=== PATIENT | female | born 1980 | race American Indian/Alaskan Native ===

== ENCOUNTER 2017-08-28 00:04 | Emergency (ER) | payer SELFPAY ==
[2017-08-28] MEDS ORDERED: ZOFRAN IV ONE ×2 (01:20→02:12)
[2017-08-28] MEDS ORDERED: DILAUDID IV ONE ×2 (01:20→02:14)
--- NOTE | 2017-08-28 01:25 | Emergency Department Report ---
ED Upper Extremity Inj HPI - General Chief Complaint: Extremity Problem,Nontraumatic Stated Complaint: LT ARM PAIN Time Seen by Provider: 08/28/17 01:02 Source: patient Mode of arrival: Ambulatory Limitations: No Limitations - History of Present Illness Initial Comments: 37-year-old female with no significant past medical history presents to the hospital left arm pain. Patient is right-hand dominant. Patient states she was upset at the time about a family situation involving her parents. She was in a hurry and her was assisting with putting on her jacket. Patient placed her left arm in the jacket and went to spin around and put the right arm in the jacket when she felt sudden onset of sharp pain to her left upper arm rated 10/10 in intensity. She felt like her arm with hanging out of place. Pain is constant and worse with palpation and movement. No other injury reported. Patient denies domestic abuse, assault, or other trauma (when questioned without her present). - Related Data Previous Rx's Medication Instructions Recorded Last Taken Type Ibuprofen [Motrin] 800 mg PO Q8HR PRN #30 tablet 08/28/17 Unknown Rx Oxycodone HCl/Acetaminophen 1 each PO Q4HR PRN #20 tablet 08/28/17 Unknown Rx [Percocet 7.5/325 mg] Allergies Allergy/AdvReac Type Severity Reaction Status Date / Time No Known Allergies Allergy Unverified 08/28/17 00:27 ED Review of Systems ROS: Stated complaint: LT ARM PAIN Other details as noted in HPI Comment: All other systems reviewed and negative Other: Constitutional: No fevers chills Eyes: No eye pain visual changes ENT: No ear pain or throat pain Neck: Denies pain Respiratory: Denies cough wheezing shortness of breath Cardiovascular: Denies chest pain, palpitations, syncope GI: Denies abdominal pain, nausea, vomiting, diarrhea : Denies dysuria Musculoskeletal: as per hpi Skin: Denies rash, lesions, erythema Neurologic: Denies headache, numbness, weakness Psychiatric: Denies suicidal ideation, hallucinations ED Past Medical Hx - Past Medical History Previous Medical History?: No - Surgical History Past Surgical History?: No - Social History Smoking Status: Never Smoker Substance Use Type: None - Medications Home Medications: Home Medications Medication Instructions Recorded Confirmed Last Taken Type Ibuprofen [Motrin] 800 mg PO Q8HR PRN #30 tablet 08/28/17 Unknown Rx Oxycodone HCl/Acetaminophen 1 each PO Q4HR PRN #20 tablet 08/28/17 Unknown Rx [Percocet 7.5/325 mg] ED Physical Exam - General Limitations: No Limitations - Other Other exam information: General: No limitations, moderate discomfort secondary to pain Head exam: Atraumatic, normocephalic Eyes exam: Normal appearance ENT: Moist mucous membrane, normal oropharynx Neck exam: Normal inspection, full range of motion, no meningismus nontender Respiratory exam: Clear to auscultation bilateral, no wheezes, rales, crackles Cardiovascular: Normal rate and rhythm, normal heart sounds Abdomen: Soft, nondistended, and nontender, with normal bowel sounds, no rebound, or guarding Extremity: Full range of motion. Deformity to left upper arm with pain to palpation. 2+ radial pulse to the left wrist with full range of motion of fingers. No signs of bradycardia and no positive this time. Patient has good strength with wrist dorsiflexion, and good thumb strength in all directions including okay sign. Back: Normal Inspection, full range of motion, no tenderness Neurologic: Alert, oriented x3, cranial nerves intact, no motor or sensory deficit Psychiatric: normal affect, normal mood Skin: Warm, dry, intact ED Course Vital Signs 08/28/17 08/28/17 00:08 01:40 Temperature 98.7 F 98.1 F Pulse Rate 78 68 Respiratory 18 18 Rate Blood Pressure 130/91 Blood Pressure 138/72 [Left] O2 Sat by Pulse 99 100 Oximetry - Reevaluation(s) Reevaluation #1: 08/28/17 03:46 Patient received Dilaudid 1 mg 2 and Zofran 4 mg 2 prior to splint placement - Consultations Consultation #1: 08/28/17 01:27 Case discussed with on-call orthopedic surgeon Dr. Mccall. He reviewed images. Recommend coarctation splint and outpatient follow-up on Friday. ED Medical Decision Making - Radiology Data Radiology results: report reviewed read by radiologist Left Shoulder x-ray: Nondisplaced cortical fracture of the proximal left humerus diaphysis Left humerus x-ray: Fractures of the proximal humerus, angulated and a nondisplaced cortical fracture of the humeral neck - Medical Decision Making Patient had a coarctation splint placed by tech in the ED. Splint inspected by me in deemed effective in addition to sling. Patient has 2+ radial pulses, normal distal sensation and normal strength to fingers and wrists after splint placement. Patient will be discharged home on pain medication and encouraged to follow up with orthopedic surgeon on the - Differential Diagnosis fracture, contusion, sprain, dislocation Critical Care Time: No Critical care attestation.: If time is entered above; I have spent that time in minutes in the direct care of this critically ill patient, excluding procedure time. ED Disposition Clinical Impression: Fracture of humerus, left, closed Disposition: TO HOME OR SELFCARE Is pt being admited?: No Does the pt Need Aspirin: No Condition: Stable Instructions: Arm Fracture in Adults (ED) Additional Instructions: Take the medication as prescribed as needed for pain. Follow with the orthopedic surgeon on the for further evaluation. You will likely need surgery. Please return if symptoms worsen as indicated by your discharge instructions. Prescriptions: Ibuprofen [Motrin] 800 mg PO Q8HR PRN #30 tablet PRN Reason: Pain Oxycodone HCl/Acetaminophen [Percocet 7.5/325 mg] 1 each PO Q4HR PRN #20 tablet PRN Reason: Pain Referrals: ANSON MCCALL MD [Staff Physician] - 08/29/17 Time of Disposition: 03:52
--- NOTE | 2017-08-28 02:03 | XRay Report ---
FINAL REPORT PROCEDURE: XR SHOULDER 1V LT TECHNIQUE: LEFT shoulder radiograph, single frontal view. HISTORY: extreme pain L shoulder COMPARISON: No prior studies are available for comparison. FINDINGS: Fracture(s): There is a nondisplaced cortical fracture of the proximal left humeral diaphysis. Joint space(s): Normal. Soft tissues: Normal. Bone mineralization: Normal. Foreign bodies: None. IMPRESSION: There is a nondisplaced cortical fracture of the proximal left humeral diaphysis. There is no joint dislocation.
--- NOTE | 2017-08-28 02:06 | XRay Report ---
FINAL REPORT PROCEDURE: XR HUMERUS 1V LT TECHNIQUE: LEFT humerus radiographs, AP and lateral views. HISTORY: extreme pain left humerus l COMPARISON: No prior studies are available for comparison. FINDINGS: Fracture (s) and/or Dislocation(s): There is a displaced angulated fracture of the proximal humeral diaphysis. There is a nondisplaced cortical fracture of the humeral neck. Joint space(s): Normal. Soft tissues: There is generalized soft tissue swelling. Bone mineralization: Normal. Foreign bodies: None. IMPRESSION: Fractures of the proximal humerus. There is no joint dislocation.
[2017-08-28 02:16] VITALS: BP 138/72
[2017-08-28] MEDS ORDERED: TORADOL IV ONE (02:25)
[2017-08-28] MEDS ORDERED: TORADOL ONE (04:50)
== END 2017-08-28 05:08 | disposition home or self-care (01) ==
LOC: ED 00:04
DX: S42.392A Other fracture of shaft of left humerus, initial encounter for closed fracture (principal); X50.9XXA Other and unspecified overexertion or strenuous movements or postures, initial encounter; Y93.89 Activity, other specified; Y99.8 Other external cause status; Y92.89 Other specified places as the place of occurrence of the external cause
CPT/HCPCS: 29105; 36415; 73020; 73060; 84703; 96374; 96375; 96376; 99284; J1170; J1885; J2405

== ENCOUNTER 2017-09-18 07:45 | Day surgery (SDC) | payer OTHER ==
[~2017-09-18 07:45] MED LIST: ANCEF/STERILE WATER 2 GM/20 ML IV NR
[2017-09-18] MEDS ORDERED: DIPRIVAN 10 MG/ML IV ONE (08:44)
[2017-09-18] MEDS ORDERED: SUBLIMAZE ONE (08:45)
[2017-09-18] MEDS ORDERED: XYLOCAINE MPF 2% ONE (08:46)
[2017-09-18] MEDS ORDERED: QUELICIN ONE (08:46)
[2017-09-18] MEDS ORDERED: ZOFRAN ONE (08:46)
[2017-09-18] MEDS ORDERED: ZEMURON IV ONE (08:46)
[2017-09-18] MEDS ORDERED: NEOSTIGMINE ONE (08:47)
[2017-09-18] MEDS ORDERED: ROBINUL ONE (08:47)
[2017-09-18] MEDS ORDERED: SUBLIMAZE IV NR (08:50)
--- NOTE | 2017-09-18 08:53 | Anesthesia Consultation ---
Anesthesia Consult and Med Hx Date of service: 09/18/17 - Airway Anesthetic Teeth Evaluation: Good ROM Head & Neck: Adequate Mental/Hyoid Distance: Adequate Mallampati Class: Class I Intubation Access Assessment: Good - Pulmonary Exam CTA: Yes - Cardiac Exam Cardiac Exam: RRR - Pre-Operative Health Status ASA Pre-Surgery Classification: ASA1 Proposed Anesthetic Plan: General Nerve Block: supraclavicular - Pulmonary Hx Smoking: Yes (CIGARS- STOPPED 2015) Hx Sleep Apnea: No (LORI PRE SCREEN NEGATIVE) - Cardiovascular System Hx Hypertension: No - Hematic Hx Anemia: Yes ( CHILD ONLY) - Other Systems Hx Substance Use: Yes (OCC MARIJUANA) Hx Cancer: No
--- NOTE | 2017-09-18 08:53 | Anesthesia Day of Surgery ---
Anesthesia Day of Surgery - Day of Surgery Patient Examined: Yes Patient H&P Reviewed: Yes Patient is NPO: Yes
[2017-09-18 09:00] LABS: HCG Qualitative,Urine Negative (Negative)
[2017-09-18] MEDS ORDERED: VERSED IV NR (09:00)
[2017-09-18] MEDS ORDERED: NACL 0.9% 1000 ML 1,000 ML IV SCH (09:00)
[2017-09-18] MEDS ORDERED: MARCAINE 0.25% INFILTRATI ONE ×2 (09:40→12:45)
[2017-09-18] MEDS ORDERED: MORPHINE ONE (09:41)
[2017-09-18] MEDS ORDERED: DECADRON ONE ×2 (09:41→12:46)
[2017-09-18] MEDS ORDERED: NACL 0.9% IR ONE (11:00)
[2017-09-18] MEDS ORDERED: DILAUDID ONE ×2 (12:26→12:41)
[2017-09-18] MEDS ORDERED: TORADOL ONE (12:42)
--- NOTE | 2017-09-18 14:36 | Post Anesthesia Evaluation ---
- Post Anesthesia Evaluation Patient Participated: Yes Airway Patent: Yes Stable Respiratory Function: Yes Nausea/Vomiting: No Temp > 96.8F: Yes Pain Manageable: Yes Adequeate Hydration: Yes Anesthesia Complications: No
--- NOTE | 2017-09-18 16:25 | Procedure Note ---
Date of procedure: 09/18/17 Pre-op diagnosis: displaced left proximal humerus fracture Post-op diagnosis: same Procedure: Closed reduction insertion of intramedullary nail left humerus Procedure The patient was brought normal postabsorptive position and induction and appreciable anesthesia patient was placed in the beachchair position The left upper extremity was prepped and draped in the usual sterile manner, procedure was identified position and the correct operative site. Incision was made over the anterior border proximal humerus, this then taken down sharply thru deltoid fascia and rotator cuff tendon. Using C-arm fluroscopy the entry point created and ball tip guide wire inserted into medullary canal across the fracture site into the distal fragment. Measurement obtained such as length and diameter needed, a 9.0 x 250 humeral nail selected and inserted antegrade down the humeral canal, proximal locking screws place, AP and lateral views obtained and showed good reduction at fracture site and placement of hardware. Wound copiously irrigated and closed in standard routine fashion. post op dressing applied. There were no complications noted. Taken to PACU in stable condition... Anesthesia: GETA Surgeon: ANSON GORE Estimated blood loss: 50-100ml Pathology: none Condition: stable Disposition: PACU
[2017-09-18 18:01] VITALS: BP 138/98
--- NOTE | 2017-09-19 11:53 | XRay Report ---
Operative left humerus: There is a medullary eloy coursing through the fractured humerus shaft. It is stabilized proximally by 2 screws. No screws noted distally on the available images. There is good alignment and apposition the bone fragment around the eloy.
== END 2017-09-18 15:45 | disposition home or self-care (01) ==
LOC: OR 07:45
PROVIDERS: ATTEND Orthopaedic Surgery
DX: S42.292A Other displaced fracture of upper end of left humerus, initial encounter for closed fracture (principal); Z87.891 Personal history of nicotine dependence; Z88.6 Allergy status to analgesic agent; X58.XXXA Exposure to other specified factors, initial encounter; Y93.89 Activity, other specified; Y92.89 Other specified places as the place of occurrence of the external cause; Y99.8 Other external cause status
CPT/HCPCS: 24516; 64450; 73060; 81025; C1713; C1769; J0330; J0690; J1100; J1170; J1885; J2250; J2270; J2405; J2704; J2710; J3010; J7030

== ENCOUNTER 2019-09-09 01:20 | Emergency (ER) | payer SELFPAY ==
[2019-09-09] MEDS ORDERED: ASPIRIN 325 MG TAB PO ONE (01:27)
[2019-09-09 02:53] LABS: Basophils % (Auto) 0.3 % (0.0-1.8); Eosinophils # (Auto) 0.1 K/mm3 (0.0-0.4); Eosinophils % (Auto) 1.4 % (0.0-4.3); Hemoglobin 13.5 gm/dl (10.1-14.3); Lymphocytes % (Auto) 31.3 % (13.4-35.0); Mean Corpuscular HGB Conc 34 % (30-34); Mean Corpuscular Volume 90 fl (79-97); Monocytes # (Auto) 0.6 K/mm3 (0.0-0.8); Monocytes % (Auto) 9.1 % (0.0-7.3); Red Blood Count 4.46 M/mm3 (3.65-5.03)
[2019-09-09 02:54] LABS: Platelet Count 173 K/mm3 (140-440)
--- NOTE | 2019-09-09 03:02 | XRay Report ---
CHEST 1 VIEW INDICATION / CLINICAL INFORMATION: Chest Pain. COMPARISON: None available. FINDINGS: SUPPORT DEVICES: None. HEART / MEDIASTINUM: No significant abnormality. LUNGS / PLEURA: No significant pulmonary or pleural abnormality. No pneumothorax. ADDITIONAL FINDINGS: No significant additional findings. IMPRESSION: 1. No significant change Signer Name: Anthony Riojas MD Signed: 09/09/2019 2:57 AM Workstation Name: [id number]
[2019-09-09 03:08] LABS: BUN/Creatinine Ratio 21; Blood Urea Nitrogen 17 mg/dL (7-17); Calcium 9.6 mg/dL (8.4-10.2); Hemolysis Index 1
--- NOTE | 2019-09-09 04:06 | Emergency Department Report ---
HPI - General Chief Complaint: Chest Pain Time Seen by Provider: 09/09/19 03:06 - HPI HPI: 39-year-old -[place] female presents to the emergency department from home with complaint of having some jaw tightness that started earlier in the evening followed by some palpitations and a tingling sensation throughout the neck and chest. The jaw tightness started on the right side and then moved to the left. The other symptoms followed. She says that the symptoms worsened when she was trying to lay on her back and then lay on her stomach. She drank some water, used a cool towel, and then tried some orange juice, to treat her symptoms. At the time of my examination the only complaint is the jaw tightness on the right side. She says that the jaw tightness has happened 1 time previously, about 2 years ago. She denies any headache, vision change, shortness of breath, slurred speech, numbness. She has no past medical history. Denies any tobacco or illicit drug use. No recent travel or sick contacts at home. ED Past Medical Hx - Past Medical History Previous Medical History?: No Hx Hypertension: No Hx HIV: No - Surgical History Past Surgical History?: Yes Hx Appendectomy: Yes (1985) Additional Surgical History: eloy placed in L arm 09/2017 - Social History Smoking Status: Never Smoker - Medications Home Medications: Home Medications Medication Instructions Recorded Confirmed Last Taken Type Ibuprofen [Motrin] 800 mg PO Q8HR PRN #30 tablet 08/28/17 09/18/17 09/12/17 Rx Oxycodone HCl/Acetaminophen 1 each PO Q4HR PRN #20 tablet 08/28/17 09/18/17 09/18/17 06:30 Rx [Percocet 7.5/325 mg] Baclofen [Lioresal] 10 mg PO TID #15 tab 06/17/18 Unknown Rx Ibuprofen [Motrin 600 MG tab] 600 mg PO Q8H PRN #20 tablet 09/09/19 Unknown Rx ED Review of Systems ROS: Stated complaint: JAW PAIN SOB TINGLING NECK PAIN Other details as noted in HPI Comment: All other systems reviewed and negative Constitutional: denies: chills, fever Eyes: denies: eye pain, vision change ENT: other (jaw tightness). denies: ear pain Respiratory: denies: cough, shortness of breath Cardiovascular: palpitations. denies: edema Gastrointestinal: nausea. denies: abdominal pain Genitourinary: denies: dysuria, discharge Musculoskeletal: denies: back pain, joint swelling Skin: denies: rash, lesions Neurological: paresthesias. denies: headache, weakness Physical Exam - Physical Exam Vital Signs: Vital Signs 09/09/19 09/09/19 01:26 03:00 Temperature 98.1 F 98.5 F Pulse Rate 98 H 66 Respiratory 18 18 Rate Blood Pressure 152/106 Blood Pressure 113/84 [Left] O2 Sat by Pulse 95 98 Oximetry Physical Exam: GENERAL: The patient is well-developed well-nourished. HENT: Normocephalic. Atraumatic. Patient has moist mucous membranes. Oropharynx is clear. No drooling or trismus. EYES: Extraocular motions are intact. Pupils equal reactive to light bilaterally. NECK: Supple. Trachea is midline. CHEST/LUNGS: Clear to auscultation. There is no respiratory distress noted. HEART/CARDIOVASCULAR: Regular. There is no tachycardia. There is no murmur. ABDOMEN: Abdomen is soft, nontender. Patient has normal bowel sounds. SKIN: Skin is warm and dry. NEURO: The patient is awake, alert, and oriented. The patient is cooperative. The patient has no focal neurologic deficits. Normal speech. MUSCULOSKELETAL: There is no tenderness or deformity. There is no evidence of acute injury. ED Course Vital Signs 09/09/19 09/09/19 01:26 03:00 Temperature 98.1 F 98.5 F Pulse Rate 98 H 66 Respiratory 18 18 Rate Blood Pressure 152/106 Blood Pressure 113/84 [Left] O2 Sat by Pulse 95 98 Oximetry ED Medical Decision Making - Lab Data Result diagrams: 09/09/19 02:20 09/09/19 02:20 - EKG Data -: EKG Interpreted by Me EKG shows normal: sinus rhythm, axis, intervals, QRS complexes, ST-T waves Rate: normal - EKG Data When compared to previous EKG there are: previous EKG unavailable Interpretation: normal EKG - Radiology Data Radiology results: image reviewed interpreted by me: Chest x-ray does not show any acute process. There are no pleural effusions, obvious pneumonia and there is no pneumothorax. - Medical Decision Making This patient presents to the emergency department with complaint of some jaw tightness/pain, followed by some atypical chest discomfort and paresthesias of the chest, as well as palpitations. At the time of my examination her only complaint is the jaw tightness. There is no swelling, skin color change, rash. May be consistent with TMJ. An EKG was done that does not show any signs of ST elevation [place], ischemia or dysrhythmia. Chest x-ray does not show any pleural effusions, pneumonia, pneumothorax, focal consolidation, or any other acute process. Labs have been unremarkable including CBC, metabolic panel, TSH and negative troponins x2. Vital signs been stable throughout her ED course including being afebrile. The patient is low on the heart score. She is low on the Wells score and negative on the pulmonary embolism rule out criteria. For all these reasons the patient appears safe for discharge home at this time. Her contact information has been sent over to [facility] cardiology and as per our hospital protocol for chest pain in low risk patients, someone from their office will be contacting her shortly for close outpatient follow-up. She also has been given referrals for primary care. She will return to the ER with any worsening of her symptoms or any acute distress. - Differential Diagnosis TMJ, [place], thyroid dysfunction, electrolyte abnormalities, dysrhythmia Critical Care Time: No Critical care attestation.: If time is entered above; I have spent that time in minutes in the direct care of this critically ill patient, excluding procedure time. ED Disposition Clinical Impression: Atypical chest pain, Jaw pain Disposition: TO HOME OR SELFCARE Is pt being admited?: No Condition: Stable Instructions: Chest Pain (ED) Additional Instructions: Please follow-up with a primary care physician in the next few days. I have sent your contact information over to [facility] and someone from their office should be contacting you shortly regarding your chest pains. Return to the emergency department with any worsening of your symptoms or any acute distress. Prescriptions: Ibuprofen [Motrin 600 MG tab] 600 mg PO Q8H PRN #20 tablet PRN Reason: Pain Referrals: PRIMARY CARE, [Primary Care Provider] - 3-5 Days GOMEZ SAHU DO [Staff Physician] - 3-5 Days RUDDY PARADA MD [Staff Physician] - 3-5 Days [facility] [Outside] - 3-5 Days [facility] [Provider Group] - 3-5 Days Time of Disposition: 05:21
[2019-09-09] MEDS ORDERED: IBUPROFEN 600 MG TAB PO ONE (05:19)
[2019-09-09 05:55] VITALS: BP 108/74
== END 2019-09-09 05:50 | disposition home or self-care (01) ==
LOC: ED 01:20
DX: R07.89 Other chest pain (principal); R68.84 Jaw pain; M54.2 Cervicalgia; Z79.899 Other long term (current) drug therapy; Z90.49 Acquired absence of other specified parts of digestive tract; Z98.890 Other specified postprocedural states
CPT/HCPCS: 36415; 71045; 80048; 84443; 84484; 85025; 93005; 93010

== ENCOUNTER 2022-01-24 19:19 | Emergency (ER) | payer SELFPAY ==
[2022-01-24 19:47] VITALS: BP 137/101
== END 2022-01-24 22:00 | disposition left against medical advice (07) ==
LOC: ED 19:19
DX: R51.9 Headache, unspecified (principal); R53.83 Other fatigue; Z53.21 Procedure and treatment not carried out due to patient leaving prior to being seen by health care provider